=== PATIENT | female | born 1950 | race Two or more races ===

== ENCOUNTER 2023-05-20 09:04 | Emergency (ER) | payer OTHER ==
[~2023-05-20] VITALS: Ht 154.9 cm; Wt 59.0 kg
[~2023-05-20 09:04] MED LIST: JANUMET XR 1001 EACH PO; LOTREL 5-10 MG1 CAP PO; QUESTRAN POWDE378 GM PO; SYNTHROID50 MCG PO; TOPROL XL25 MG PO; ZANTAC150 MG PO; amaryl
== END 2023-05-20 11:15 | disposition home or self-care (01) ==
LOC: ER 09:04
DX: U07.1 COVID-19 (principal); I10 Essential (primary) hypertension; Z88.6 Allergy status to analgesic agent; E11.9 Type 2 diabetes mellitus without complications